=== PATIENT | male | born 1945 | race Caucasian/White ===

== ENCOUNTER 2021-04-08 17:01 | Inpatient (IN) | payer MEDICARE ==
[~2021-04-08] VITALS: Ht 177.8 cm; Wt 95.8 kg
[2021-04-08 18:55] LABS: INR 1.32 (0.9-1.2); PROTHROMBIN TIME 15.7 SECONDS (11.8-13.4)
[2021-04-08 18:56] LABS: CORONAVIRUS 2019 SARS-COV-2 NEGATIVE (NEGATIVE); INFLUENZA A NAA NEGATIVE (NEGATIVE)
[2021-04-08 19:09] LABS: ALBUMIN 2.8 g/dL (3.4-5.0); BILIRUBIN - TOTAL 0.4 mg/dL (0.2-1.0); BUN/CREAT RATIO (CALC) 35.6 RATIO; CREATININE 1.04 mg/dL (0.67-1.17); GLOBULIN (CALCULATION) 3.5 g/dL; TOTAL PROTEIN 6.3 g/dL (6.4-8.2)
[2021-04-08 19:10] LABS: POTASSIUM 5.1 mmol/L (3.5-5.1)
[2021-04-08 19:32] LABS: BASOPHIL 0.4 % (0-2); EOSINOPHIL 0.3 % (0-7); HCT 28.1 % (42.0-52.0); HGB 8.3 g/dl (13.2-18.0); LYMPHOCYTE 9.2 % (15-48); MCH 26.1 pg (25.0-31.0); MCHC 29.5 g/dL (32.0-36.0); MCV 88.4 fL (78.0-100.0); MPV 10.4 fL (6.0-9.5); NEUTROPHIL 81.1 % (41-80); NRBC 0.2; PLT 160 K/uL (150-400); RBC 3.18 M/uL (4.70-6.00); RDW 18.6 % (11.5-14.0); WBC 10.9 K/uL (4.0-10.5)
[2021-04-08 19:40] LABS: BILIRUBIN NEGATIVE (NEGATIVE); BLOOD NEGATIVE Ery/uL (NEGATIVE); CLARITY CLEAR (CLEAR); COLOR YELLOW (YELLOW); GLUCOSE (U) NORMAL (NORMAL); LEUKOCYTES NEGATIVE Leu/uL (NEGATIVE); NITRITE NEGATIVE (NEGATIVE); PROTEIN TRACE (LOW) mg/dL (NEGATIVE); UROBILINOGEN 0.2 mg/dL (0.2-1.0)
[2021-04-08 19:56] LABS: PTT <20 SECONDS (24.4-34.7)
[2021-04-08] MEDS ORDERED: LACTULOSE10 G/15 ML PO (22:56)
[2021-04-08] MEDS ORDERED: PROTONIX 40MG T40 MG PO (22:56)
[2021-04-08] MEDS ORDERED: LASIX10 MG/ML PO (22:57)
[2021-04-09 00:59] LABS: HCT 27.9 % (42.0-52.0)
[2021-04-09 06:27] LABS: BASOPHIL 0.3 % (0-2); EOSINOPHIL 0.9 % (0-7); HCT 23.1 % (42.0-52.0); HGB 6.8 g/dl (13.2-18.0); LYMPHOCYTE 24.6 % (15-48); MCHC 29.4 g/dL (32.0-36.0); MCV 88.2 fL (78.0-100.0); MPV 10.2 fL (6.0-9.5); NEUTROPHIL 62.5 % (41-80); NRBC 0.3; PLT 150 K/uL (150-400); RBC 2.62 M/uL (4.70-6.00); RDW 18.6 % (11.5-14.0); WBC 11.6 K/uL (4.0-10.5)
[2021-04-09 06:48] LABS: IRON % SATURATION 5.5 %SAT (20-50)
[2021-04-09 07:13] LABS: BUN/CREAT RATIO (CALC) 44.4 RATIO; CREATININE 1.08 mg/dL (0.67-1.17); FOLIC ACID (SERUM) 16.2 ng/mL (8.6-58.9); POTASSIUM 4.5 mmol/L (3.5-5.1)
--- NOTE | 2021-04-10 02:38 | NUR ---
NURSE HELD PTS 3RD UNIT OF BLOOD AND CONTINUOUS FLUIDS PER NIGHT READING COACH
[2021-04-10 06:27] LABS: BASOPHIL 0.8 % (0-2); EOSINOPHIL 3.9 % (0-7); HCT 27.5 % (42.0-52.0); HGB 8.3 g/dl (13.2-18.0); LYMPHOCYTE 24.8 % (15-48); MCH 27.3 pg (25.0-31.0); MCHC 30.2 g/dL (32.0-36.0); MCV 90.5 fL (78.0-100.0); MONOCYTE 7.8 % (0-12); NEUTROPHIL 62.1 % (41-80); NRBC 0; PLT 137 K/uL (150-400); RBC 3.04 M/uL (4.70-6.00); RDW 17.9 % (11.5-14.0); WBC 7.7 K/uL (4.0-10.5)
[2021-04-10 09:00] LABS: CREATININE 1.11 mg/dL (0.67-1.17)
[2021-04-10 09:01] LABS: POTASSIUM 4.1 mmol/L (3.5-5.1)
[2021-04-10] MEDS ORDERED: REGLAN5 MG PO ×2 (12:39→14:40)
== END 2021-04-10 15:03 | disposition home or self-care (01) | DRG 74 ==
LOC: FER 17:01 → FMS 21:34
PROVIDERS: Allergy & Immunology Allergy; Nurse Practitioner; Nurse Practitioner Family; Student in an Organized Health Care Education/Training Program; ADMIT Internal Medicine
PROC: 0DB78ZX Excision of Stomach, Pylorus, Via Natural or Artificial Opening Endoscopic, Diagnostic (ICD-10-PCS; principal; 2021-04-09 10:20)
PROC: 30233N1 Transfusion of Nonautologous Red Blood Cells into Peripheral Vein, Percutaneous Approach (ICD-10-PCS; 2021-04-09 10:20)
DX: E11.43 Type 2 diabetes mellitus with diabetic autonomic (poly)neuropathy (principal); I85.10 Secondary esophageal varices without bleeding; K31.84 Gastroparesis; Z20.822 Contact with and (suspected) exposure to COVID-19; K29.70 Gastritis, unspecified, without bleeding; D50.0 Iron deficiency anemia secondary to blood loss (chronic); K74.60 Unspecified cirrhosis of liver; K21.9 Gastro-esophageal reflux disease without esophagitis; Z96.642 Presence of left artificial hip joint; Z98.52 Vasectomy status; Z98.890 Other specified postprocedural states; Z79.899 Other long term (current) drug therapy
CPT/HCPCS: 36415; 36430; 71045; 78264; 80048; 80053; 81003; 82150; 82607; 82746; 83540; 83550; 83690; 84484; 85014; 85018; 85025; 85610; 85730; 86850; 86900; 86901; 86922; 93005; 94010; 94760; A9541; C9113; J2704; J3430; J7030; J7120; P9016; Q9967; U0002